=== PATIENT | male | born 1965 | race Caucasian/White ===

== ENCOUNTER 2017-01-30 00:34 | Emergency (ER) | payer MEDICAID ==
[~2017-01-30] VITALS: Ht 165.1 cm; Wt 67.5 kg
[2017-01-30 00:44] VITALS: BP 146/97
[2017-01-30] MEDS ORDERED: LORA-446 PO (02:13)
[2017-01-30] MEDS ORDERED: LISI5TAB7 PO (02:13)
[2017-01-30] MEDS ORDERED: LORazepam 0.5MG TABLET ONE (02:24)
[2017-01-30] MEDS ORDERED: PLEASE ENTER ALLERGIES MC SCH ×2 (02:30)
[2017-01-30] MEDS ORDERED: LORazepam 0.5MG TABLET PO ONE (02:30)
== END 2017-01-30 03:19 | disposition home or self-care (01) ==
LOC: ED 03:00
DX: F41.1 Generalized anxiety disorder (principal); F12.10 Cannabis abuse, uncomplicated; I10 Essential (primary) hypertension
CPT/HCPCS: 99284